=== PATIENT | male | born 1945 | race Caucasian/White ===

== ENCOUNTER 2017-11-11 18:47 | Emergency (ER) | payer MEDICARE, OTHER, SELFPAY ==
[2017-11-11 18:48] VITALS: BP 127/71; PULSE 89; RESP 18; TEMP 36.5; O2SAT 95; BMI 29.7
[2017-11-11] MEDS: Tetracaine 0.5% Ophthalmic Bottle 1 DRP LEFT EYE (19:59)
--- NOTE | 2017-11-11 21:17 | ED.VISSUMM ---
- ER Visit Summary Date of Service: 11/11/17 Chief Complaint: Sawdust right eye History of Present Illness: The patient is a 72 M who was working with a saw and believes he got sawdust in his right eye about 6 hours prior to presentation. He complains of tearing and watering as well as light sensitivity and foreign body sensation. No blurry vision. He does not use contacts. Physical Examination: Afebrile vitals are unremarkable Patient does have some conjunctival injection of the right eye eyelid was everted there is no obvious foreign body Pupils are equally round reactive to light Extraocular motion intact Anterior chamber deep and quiet Slit-lamp examination showed no obvious corneal defect Test Results: Not indicated Emergency Department Course and Treatment: The hospital is out of the floor seen and had no alternative either. Therefore I am unable to perform examination for dye uptake or [place] sign. However I do not have significant clinical suspicion for open globe type injury. I suspect the patient has a corneal abrasion. I spoke Dr. Cowart who is covering for Dr. Reagan who the patient is seen previously and we will empirically treat and have the patient follow-up in the office. Treatment Plan: [] Disposition: Discharge Impression: Corneal abrasion This note was generated with [email or web address] dictation software. It may contain incorrect words, spelling, and punctuation that were not noted in review of the chart prior to signing ED Disposition - Plan for ED Patient: Chief Complaint: Eye Problem Referrals: Darron Terry MD [Primary Care Provider] -
--- NOTE | 2017-11-11 21:19 | ED.DEP ---
ED Disposition - Plan for ED Patient: Chief Complaint: Eye Problem Instructions: ED Eye Injury Corneal Abrasion Prescriptions: Bacitracin/Polymyxin B Sulfate [Bacitracin-Polymyxin Eye Oint] 0.5 inch RIGHT EYE TID #1 oint...g. Referrals: Darron Terry MD [Primary Care Provider] - Jesus Alberto Reagan MD [STAFF PHYSICIAN] -
[2017-11-11 21:37] VITALS: BP 117/80; PULSE 63; RESP 18; O2SAT 100
== END 2017-11-11 21:38 | disposition home or self-care (01) ==
PROVIDERS: Emergency Provider Emergency Medicine; Family Provider Family Medicine; PCP Family Medicine
DX: S05.01XA Injury of conjunctiva and corneal abrasion without foreign body, right eye, initial encounter (principal); X58.XXXA Exposure to other specified factors, initial encounter; Y93.9 Activity, unspecified; Y92.9 Unspecified place or not applicable; Y99.9 Unspecified external cause status; E11.9 Type 2 diabetes mellitus without complications; Z79.84 Long term (current) use of oral hypoglycemic drugs; Z79.899 Other long term (current) drug therapy
CPT/HCPCS: 99283

== ENCOUNTER 2018-04-28 21:28 | Emergency (ER) | payer MEDICARE, OTHER, SELFPAY ==
[2018-04-28 21:28] VITALS: BP 148/86; PULSE 60; RESP 18; TEMP 36.9; O2SAT 99; BMI 29.7
[2018-04-28 22:15] LABS: Absolute Lymphocyte Count 0.89 X10^3/ul (0.83-4.51); Absolute Neutrophil Count 6.1 X10^3/uL (2.0-7.7); Basophil# 0.01 X10^3/uL; Basophil% 0.1 % (0-1); Hematocrit 41.2 % (40-54); Hemoglobin 14.1 g/dl (13.0-16.5); Lymphocyte # 0.89 X10^3/ul (4.0); Lymphocyte % 12.3 % (19-41); Mean Corp Hgb Conc 34.2 g/gl (32-36); Mean Corpuscular Hgb 29.6 pg (27.0-32.0); Mean Corpuscular Volume 86.6 fL (80-94); Mean Platelet Vol. 9.1 fl (6.2-12.0); Monocyte% 4.1 % (0-10); Neutrophil # 6.05 X10^3/uL (2.7-7.7); Neutrophil % 83.4 % (47-70); POSITIVE COUNT NO; POSITIVE DIFFERENTIAL NO; POSITIVE MORPHOLOGY NO; Platelet Count 266 K/mm3 (150-450); RBC Distribution Width CV 14.1 % (11.6-14.6); RBC Distribution Width SD 44.2 fl (35.1-43.9); Red Blood Count 4.76 M/mm3 (4.6-6.2); White Blood Count 7.3 K/mm3 (4.4-11.0)
[2018-04-28 22:16] VITALS: BP 145/93; PULSE 64; RESP 16; O2SAT 97
[2018-04-28 22:26] LABS: Anion Gap 9 (5-15); BUN 17 mg/dL (7-18); BUN/Creat Ratio 13.7 RATIO (10-20); Calcium,Total 9.6 mg/dL (8.5-10.1); Chloride 102 mmol/L (98-107); Creatinine, Serum 1.24 mg/dL (0.70-1.30); EST Glomerular Filtration Rate 61 mL/min (>60); Est Glom Filt Rate - Afr Amer 74 mL/min (>60); Estimated Creatinine Clearance 51.83 ml/min; Glucose 175 mg/dL (74-106); Potassium 4.1 mmol/L (3.5-5.1); Sodium Level 137 mmol/L (136-145)
--- NOTE | 2018-04-28 22:47 | CT_ITS ---
STUDY: CT ABDOMEN AND PELVIS WITH CONTRAST REASON FOR EXAM: Male, 72 years old. Abdominal pain beginning Saturday. Nausea and vomiting. History of prostate cancer and colonic polyps. RADIATION DOSAGE (If Supplied By Facility): CTDIvol = ( 16.28 ) mGy, DLP = ( 1044.37 ) mGycm TECHNIQUE: Transaxial images were obtained from the dome of the diaphragm to the symphysis pubis without oral contrast. 100ML ml of Isovue 300 contrast was administered. Sagittal and coronal images were reconstructed. Individualized dose optimization techniques were used for this CT. COMPARISON: None. FINDINGS: The visualized lung bases are unremarkable. The visualized portions of the heart are within normal limits. Normal liver. Normal gallbladder and extrahepatic biliary system. Normal spleen. Normal pancreas. Normal bilateral adrenal glands. Normal right kidney. Normal left kidney. Normal bilateral ureters. Normal visualized stomach. Normal small intestine. There is descending and sigmoid diverticuli without acute inflammatory change. The proximal colon appears normal. There is non-visualization of the appendix. Normal abdominal aorta. Normal inferior vena cava. Normal retroperitoneum. Normal urinary bladder. There are multiple brachytherapy seeds within the normal sized prostate. No pelvic lymphadenopathy. No free air or free fluid is seen within the peritoneal cavity. Small right inguinal hernia of omental fat. The abdominal wall is otherwise unremarkable. There are diffuse degenerative changes of the visualized lumbar spine. No lytic or blastic lesions are seen. CT/Abdomen/Pelvis W IV Cont ONLY IMPRESSION: 1. No evidence of acute intra-abdominal or pelvic process. 2. Sigmoid diverticulosis without acute inflammatory change. 3. Right inguinal hernia. 4. Brachytherapy seeds within the prostate. 5. Degenerative changes of the lumbar spine. Electronically Signed: Jose Lewis DO at 23:50 EDT Tel [phone], Service support ,
[2018-04-28] MEDS: 0.9% Normal Saline 1,000 ML 150 ML IV (22:59)
[2018-04-28] MEDS: Ondansetron 4 MG/2 ML Vial IV (22:59)
[2018-04-28 23:33] LABS: AST(SGOT) 16 U/L (15-37); Alanine Aminotransfer ALT/SGPT 20 U/L (16-61); Albumin, Serum 4.1 g/dL (3.2-5.0); Alkaline Phosphatase 96 U/L (45-117); Bilirubin, Direct 0.18 mg/dL (0.00-0.30); Globulin 4.5 g/dL (2.2-4.2); Lipase 59 U/L (73-393); Protein, Total 8.6 g/dL (6.4-8.2)
--- NOTE | 2018-04-28 23:33 | ED.VISSUMM ---
- ER Visit Summary Date of Service: 04/28/18 Chief Complaint: Abdominal pain History of Present Illness: The patient is a 72 M who states for the past several days he has been feeling constipated. He had a small bowel movement this morning. He notes decreased solid intake but is been drinking fluids. Notes subjective fever. The symptoms were preceded by a brief URI consisting of cough and rhinorrhea. He notes nausea with dry heaves. Denies any history of small bowel obstruction. Abdominal pain began on Saturday and is described as generalized. He has a history of diverticulitis and prostate cancer as well as diabetes hypertension high cholesterol. He denies history of small bowel obstruction. Physical Examination: Afebrile vital signs are stable Gen: Well-nourished well-developed Head: Normocephalic atraumatic Eyes: Perrl EOMI ENT: TMs clear no rhinorrhea moist mucous membranes Neck: Supple no lymphadenopathy no JVD nontender CVS: Regular rate rhythm no murmurs normal S1-S2 Respiratory: No distress clear to auscultation bilaterally chest nontender Abdomen: Soft diffusely tender without guarding or rebound nondistended hypoactive bowel sounds no masses Back: Nontender Extremity: Nontender no edema Skin: Normal color no rash Neuro: alert orientated ?3 CN II-XII intact normal strength sensation reflexes gait cerebellar Psych: Normal affect normal mood Test Results: CBC CMP lipase were normal. Urinalysis showed some ketones but no overt infection. CT of the abdomen pelvis demonstrated no acute intra-abdominal process. Emergency Department Course and Treatment: Patient received Toradol and Zofran. I believe the patient most likely sustained a viral illness which is led to an ileus as evidenced by the stool being mostly on the right side of his abdomen and hypoactive bowel sounds. Patient will use some magnesium citrate and also write for some Zofran. He is to use apple juice and prune juice tomorrow. Monitor for changes return if worsening or concerns or if not improving in 24 hours. Impression: 1. Abdominal pain 2. Ileus This note was generated with [facility] [employer] dictation software. It may contain incorrect words, spelling, and punctuation that were not noted in review of the chart prior to signing ED Disposition - Plan for ED Patient: Disposition: Home or Assisted Living Chief Complaint: Abd Pain Instructions: ED Abdominal Pain Unkn Cause Prescriptions: Ondansetron [Zofran Odt] 4 mg PO Q8H PRN PRN #10 tab PRN Reason: Nausea Referrals: Darron Terry MD [Primary Care Provider] - 3-5 Days if not improving Additional Instructions: If worsening or concerns or no significant improvement in 24 hours please return to the emergency department for evaluation
[2018-04-28 23:37] LABS: Lactic Acid 1.7 mmol/L (0.4-2.0)
[2018-04-28] MEDS: Ketorolac 30 MG/ML Syringe IV (23:45)
[2018-04-28 23:47] VITALS: BP 142/68; PULSE 72; RESP 22; O2SAT 97
[2018-04-28 23:49] LABS: Squamous Epithelial Cells - UA 0 SEEN /hpf (0-5); White Blood Cells 0 SEEN /hpf (0-5)
[2018-04-28 23:50] LABS: Color, Urine Yellow (Yellow); Glucose, Dipstick 50 mg/dl (Normal); Leukocyte Esterase-Dipstick Negative /ul (Negative); Nitrite-Dipstick Negative (Negative); Occult Blood-Urine 10 /ul (Negative); Protein-Dipstick 15 mg/dl (Negative); Urine Bilirubin Dipstick Negative (Negative); Urine Clarity Clear (Clear); Urine Urobilinogen Normal (Normal); Urine pH 6.5 (5.0 - 8.0)
[2018-04-29 00:04] LABS: Bacteria RARE /hpf (None Seen); Mucous, Urine RARE /hpf (<or=2+); Red Blood Cells-Urine 0-5 SEEN /hpf (0-5)
[2018-04-29 00:05] LABS: Ketone-Dipstick 150 mg/dl (Negative)
[2018-04-29] MEDS: Magnesium Citrate 300 ML PO (00:33)
[2018-04-29] MEDS: Ondansetron ODT 4 MG Tablet PO (00:33)
[2018-04-29 00:34] VITALS: BP 147/78; PULSE 60; RESP 17; O2SAT 98
== END 2018-04-29 00:35 | disposition home or self-care (01) ==
PROVIDERS: Emergency Provider Emergency Medicine; Family Provider Family Medicine; PCP Family Medicine
DX: K56.7 Ileus, unspecified (principal); R10.84 Generalized abdominal pain; R05 Cough; E11.9 Type 2 diabetes mellitus without complications; I10 Essential (primary) hypertension; Z79.84 Long term (current) use of oral hypoglycemic drugs; Z79.899 Other long term (current) drug therapy; Z85.46 Personal history of malignant neoplasm of prostate; Z87.19 Personal history of other diseases of the digestive system; Z96.653 Presence of artificial knee joint, bilateral
CPT/HCPCS: 74177; 80048; 80076; 81001; 83605; 83690; 85025; 96361; 96374; 96375; 99284; J7030; A4216; J2405

== ENCOUNTER 2018-05-01 02:31 | Observation (INO) | payer MEDICARE, OTHER, SELFPAY ==
[2018-05-01] VITALS (7 sets, daily range): BP systolic 120–154; BP diastolic 69–92; PULSE 60–74; RESP 16–18; TEMP 36.7–37.1; O2SAT 95–98; BMI 29.0; BMI 28.8
--- NOTE | 2018-05-01 02:47 | RAD_ITS ---
STUDY: X-RAY - ACUTE ABDOMINAL SERIES REASON FOR EXAM: Male, 72 years old. Generalized abdominal pain for 4 days. TECHNIQUE: Single view of the chest. Supine, and erect view(s) of the abdomen were obtained. COMPARISON: None. FINDINGS: There are hypoventilatory changes. No focal infiltrate is seen. Normal size heart. Normal mediastinum and jocelyn. Normal visualized pulmonary arteries. Normal visualized aortic arch and descending thoracic aorta. There are nonspecific gaseous small bowel loops and colon with multiple air-fluid levels suggestive of ileus. Early bowel obstruction is less likely. There is no evidence of free air. The soft tissue structures of the abdomen and pelvis are unremarkable. There are diffuse degenerative changes of the visualized lumbar spine. RAD/Acute Abdomen Inc Chest IMPRESSION: Gaseous small bowel loops and colon with multiple air-fluid levels likely due to ileus. Early bowel obstruction is less likely but cannot be entirely excluded. Electronically Signed: Roman Manzanares MD at 3:08 EDT Tel , Service support ,
[2018-05-01 02:57] LABS: Absolute Lymphocyte Count 1.36 X10^3/ul (0.83-4.51); Absolute Neutrophil Count 4.8 X10^3/uL (2.0-7.7); Basophil# 0.03 X10^3/uL; Basophil% 0.4 % (0-1); Eosinophil# 0.01 X10^3/uL; Eosinophils% 0.1 % (0-5); Hematocrit 41.7 % (40-54); Hemoglobin 14.7 g/dl (13.0-16.5); Lymphocyte # 1.36 X10^3/ul (4.0); Lymphocyte % 20.1 % (19-41); Mean Corp Hgb Conc 35.3 g/gl (32-36); Mean Corpuscular Hgb 30.1 pg (27.0-32.0); Mean Corpuscular Volume 85.5 fL (80-94); Mean Platelet Vol. 9.2 fl (6.2-12.0); Monocyte# 0.58 X10^3/uL; Monocyte% 8.6 % (0-10); Neutrophil # 4.79 X10^3/uL (2.7-7.7); Neutrophil % 70.7 % (47-70); POSITIVE COUNT NO; POSITIVE DIFFERENTIAL NO; POSITIVE MORPHOLOGY NO; Platelet Count 286 K/mm3 (150-450); RBC Distribution Width CV 13.6 % (11.6-14.6); RBC Distribution Width SD 41.6 fl (35.1-43.9); Red Blood Count 4.88 M/mm3 (4.6-6.2); White Blood Count 6.8 K/mm3 (4.4-11.0)
[2018-05-01] MEDS: 0.9% Normal Saline 1,000 ML 1000 ML IV (03:05)
[2018-05-01] MEDS: Ondansetron 4 MG/2 ML Vial IV (03:05)
[2018-05-01] MEDS: Morphine 4 MG/ML Syringe IV (03:05)
[2018-05-01 03:14] LABS: AST(SGOT) 14 U/L (15-37); Alanine Aminotransfer ALT/SGPT 19 U/L (16-61); Albumin, Serum 3.9 g/dL (3.2-5.0); Alkaline Phosphatase 92 U/L (45-117); Anion Gap 12 (5-15); BUN 14 mg/dL (7-18); BUN/Creat Ratio 10.4 RATIO (10-20); Calcium,Total 9.3 mg/dL (8.5-10.1); Chloride 97 mmol/L (98-107); Creatinine, Serum 1.34 mg/dL (0.70-1.30); EST Glomerular Filtration Rate 56 mL/min (>60); Est Glom Filt Rate - Afr Amer 68 mL/min (>60); Estimated Creatinine Clearance 47.96 ml/min; Globulin 4.6 g/dL (2.2-4.2); Glucose 237 mg/dL (74-106); Lipase 73 U/L (73-393); Potassium 4.3 mmol/L (3.5-5.1); Protein, Total 8.5 g/dL (6.4-8.2); Sodium Level 134 mmol/L (136-145)
--- NOTE | 2018-05-01 03:30 | ED.VISSUMM ---
- ER Visit Summary Date of Service: 05/01/18 Chief Complaint: Abdominal pain History of Present Illness: The patient is a [address] Terry. He reports that he was here 3 days ago and had a CT. Reports that he was told that he had an ileus. He was sent home with magnesium citrate. States that he took that as well as prune juice and his last bout was 2 days ago. He had felt significantly better yesterday. However, today he began having worsening pain. It is an aching diffuse pain senna 10 worsening a 10 currently. Is worsened by movement or laying on his stomach. Is relieved by remaining still. He denies any nausea or vomiting. No melena or hematochezia. No dysuria or frequency. No fever. Physical Examination: Vitals: Stable. Afebrile. General: Well-nourished and well-developed. Head: Normocephalic atraumatic. Neck: Supple, no lymphadenopathy. No JVD. Nontender. Cardiovascular: Regular rate and rhythm. No murmurs. Respiratory: No respiratory distress. Clear to auscultation bilaterally. Abdominal: Soft, mild diffuse tenderness palpation, nondistended, hypoactive bowel sounds. No guarding, rebound, or peritoneal signs. Back: Nontender. Extremities: Nontender, no edema. Skin: Normal color, no rash. Neurologic: Alert and oriented ?3. Cranial nerves II through XII are intact. Normal strength and sensation. Psych: Normal affect. Test Results: CBC is remarkable for segmented neutrophils of 71. Chem-7 is more for sodium 134, chloride 97, glucose 237, creatinine 1.34. LFTs marked for total protein of 8.5 and globulin 4.6. AST is 14. Lipase normal. He had a UA 3 days ago that was negative. This was not repeated. Had a 3 view of the abdomen shows nonspecific gaseous small bowel loops and colon with multiple air-fluid levels suggestive of an ileus. Early small bowel obstruction is less likely. Emergency Department Course and Treatment: Patient had an IV placed. He was given a liter normal saline. He was given morphine and Zofran IV. He is resting comfortably. Treatment Plan: The patient CT 3 days ago did not show an ileus on the read. However, given the location of the stool and is hypoactive bowel sounds it was felt that he did have an ileus. There is been progression over the past 3 days and I feel that he warrants admission to the hospital for further evaluation and treatment. He will be discussed with the hospitalist. Disposition: Admitted in stable condition Impression: 1. Ileus. This note was generated with [employer] dictation software. It may contain incorrect words, spelling, and punctuation that were not noted in review of the chart prior to signing ED Disposition - Plan for ED Patient: Chief Complaint: Abd Pain Referrals: Delmer Min MD [Primary Care Provider] -
--- NOTE | 2018-05-01 04:30 | HP.PCM_ITS ---
Problem List (1) Ileus Status: Acute (2) History of prostate cancer Status: Chronic (3) DM (diabetes mellitus) Status: Chronic History of Present Illness Date of Admission: 05/01/18 Chief Complaint: abdominal pain and constipation x 4 days. The patient is a 72 year old M with a significant history of type 2 diabetes, hyperlipidemia, prostate cancer status post brachytherapy; hernia repair who presents with abdominal pain and constipation times 4 days. 4 days ago patient came to the emergency department due to same symptoms and was given magnesium citrate. Patient report that after taking the magnesium citrate his bowels could not move. Subsequently he tried some prune juice and had a little bit of bowel movements. Patient still feels that he could not completely empty his bowels. He describes abdominal pain of 8-9 on a severity of 1-10. He characterizes abdominal pain as bloating and tightness. Associated with his symptoms is nausea without vomiting. Abdominal x-ray independently reviewed confirms multiple air-fluid levels of small bowel in the colon. Prior radiologist early bowel obstruction is less likely but cannot be entirely excluded. CT of his abdomen done 4 days ago at initial presentation did not show any acute pathology but clinically he was diagnosed with ileus. Ileus Less likely bowel obstruction. Remarkably patient has a history of hernia surgery. Other less likely diagnosis is Diabetic Gastroparesis Conservative treatment with npo; normal saline; morphine for pain and Zofran for nausea or vomiting. GoLYTELY ordered. Surgery consult Hypertension His blood pressure on admission was not at goal. Lisinopril held due to ileus. As needed hydralazine ordered. Diabetes mellitus type 2 Blood glucose not at goal at time of admission. Metformin held secondary to ileus Correction scale blood glucose ordered. Past Medical History Past Medical History (Chronic Problems): Chronic Problems (This Medical Record has been edited. Action required.) History of prostate cancer (Chronic) DM (diabetes mellitus) (Chronic) Medical History: Medical History (Last Reviewed 05/01/18 @ 04:46 by Marques Phillips MD) History of prostate cancer (Chronic) Z85.46 DM (diabetes mellitus) (Chronic) E11.9 Benign neoplasm of colon (Acute) D12.6 Allergies No Known Allergies Allergy (Verified 05/01/18 02:32) Home Medications: Ambulatory Orders Medication Instructions Recorded lisinopril 10 mg tablet 10 mg PO QDAY 07/04/17 metformin 500 mg tablet 500 mg PO BID 07/04/17 pravastatin 20 mg tablet 20 mg PO QHS 07/04/17 Ondansetron [Zofran Odt] 4 mg PO Q8H PRN PRN #10 tab 04/29/18 Surgical History: Surgical History (Last Reviewed 05/01/18 @ 04:46 by Marques Phillips MD) Status post bilateral knee replacements (Acute) Z96.653 Status post finger joint fusion (Acute) Z98.1 Repair of Right index finger 11/25/2006 Hx of inguinal hernia repair (Acute) Right History of local excision of skin lesion (Acute) Z98.890 Excision of skin lesion upper mid back S/P foot surgery (Acute) Z98.890 S/P surgical removal of pilonidal cyst (Acute) Z98.890 Status post arthroscopic surgery of right knee (Acute) Z98.890 partial medial menisectomy 03/21/2009 S/P arthroscopic surgery of left knee (Acute) Z98.890 medial menisectomy 02/10/2007 S/P colonoscopy (Acute) Z98.890 08/06/2012 Surgical History: herniorrhaphy, - - Previous colonoscopy August 06, 2012 Lives: With Family Smoking Status: Never smoker - had only one puff of cigarettes in entire life many years ago. - *Family History Maternal Family History: Family History (Last Reviewed 05/01/18 @ 04:47 by Marques Phillips MD) Mother Diabetes Brother Thyroid cancer Prostate cancer Sister Colon cancer Review of Systems Constitutional: Denies: Chills, Fever, Weight Change HEENT: Denies: Head Aches, Sinus Congestion, Sinus Drainage Cardiovascular: Denies: Chest Pain, Palpitations Respiratory: Denies: Cough, Shortness of breath at rest, Sputum production Gastrointestinal: Reports: Abdominal Pain, Hematemesis, Hematochezia, Nausea, Melena. Denies: Vomiting Genitourinary: Denies: Dysuria Musculoskeletal: Denies: Joint Pain, Joint Tenderness Skin: Denies: Rash, Wounds Neurological: Denies: Numbness, Tingling, Focal weakness Psychiatric: Denies: Anxiety, Depression, Homicidal Ideations, Suicidal Ideations Hematologic/ Lymphatic: Denies: Easy Bruising, Easy Bleeding VTE Information - Inpt Only VTE Present on Admission: No VTE Mechan Device Prophylaxis: None VTE Pharm Prophylaxis ordered?: Yes Patient Problems: Active and Suspected Problems (This Medical Record has been edited. Action required.) Ileus (Acute) - Physical Exam General: Alert, Oriented x3, Cooperative HEENT: Atraumatic, PERRLA, EOMI, Normocephalic Neck: Supple, No JVD, Negative Carotid Bruits Lungs: Clear to auscultation, Normal air movement Cardiovascular: Regular rate, No murmurs Abdomen: Bowel Sounds Present, Soft, Non Tender, - - Rectal exams showed no masses or obstructing stool. Extremities: No edema, Capillary Refill Less than 3 Seconds Skin: No rashes, No breakdown Musculoskeletal: No Tenderness to Palpation of Joints or Extremities Neurological: Cranial nerves II-XII grossly intact Psych/Mental Status: Normal Affect, Appropriate Vital Signs Temp Pulse Resp BP Pulse Ox 98.7 F 68 18 120/78 96 05/01/18 02:33 05/01/18 04:15 05/01/18 04:15 05/01/18 04:15 05/01/18 04:15 Oxygen Delivery Method Room Air Weight: 84 kg Body Mass Index (BMI) 29.0 Laboratory Tests Past 24 Hrs 05/01/18 05/01/18 02:40 02:40 WBC 6.8 RBC 4.88 Hgb 14.7 Hct 41.7 MCV 85.5 MCH 30.1 MCHC 35.3 RDW 13.6 RDW Differential 41.6 Plt Count 286 MPV 9.2 Immature Gran % (Auto) 0.100 Neut % (Auto) 70.7 H Lymph % (Auto) 20.1 [place] % (Auto) 8.6 Eos % (Auto) 0.1 Baso % (Auto) 0.4 Absolute Neuts (auto) 4.8 Absolute Lymphs (auto) 1.36 Total Counted Not Reportable Sodium 134 L Potassium 4.3 Chloride 97 L Carbon Dioxide 25.0 Anion Gap 12 BUN 14 Creatinine 1.34 H Estim Creat Clear Calc 47.96 Est GFR (MDRD) Af Amer 68 Est GFR (MDRD) Non-Af 56 L BUN/Creatinine Ratio 10.4 Glucose 237 H Calcium 9.3 Total Bilirubin 0.60 Direct Bilirubin 0.10 AST 14 L ALT 19 Alkaline Phosphatase 92 Total Protein 8.5 H Albumin 3.9 Globulin 4.6 H Lipase 73 Assessment/Plan All Active Problems (This Medical Record has been edited. Action required.) Ileus (Acute) Personal history of colonic polyps (Acute) Status post bilateral knee replacements (Acute) Status post finger joint fusion (Acute) Hx of inguinal hernia repair (Acute) History of local excision of skin lesion (Acute) S/P foot surgery (Acute) S/P surgical removal of pilonidal cyst (Acute) Status post arthroscopic surgery of right knee (Acute) S/P arthroscopic surgery of left knee (Acute) S/P colonoscopy (Acute) Benign neoplasm of colon (Acute) The patient is a 72 year old M with a significant history of type 2 diabetes, hyperlipidemia, prostate cancer status post brachytherapy; hernia repair who presents with abdominal pain and constipation and found to have radiographic evidence of possible ileus. Ileus Less likely bowel obstruction. Remarkably patient has a history of hernia surgery. Other less likely diagnosis is Diabetic Gastroparesis Conservative treatment with npo; normal saline; morphine for pain and Zofran for nausea or vomiting. GoLYTELY ordered. Surgery consult ED labs showed mild hyponatremia; slight elevated creatinine which may be within his baseline Hypertension His blood pressure on admission was not at goal. Lisinopril held due to ileus. As needed hydralazine ordered. Diabetes mellitus type 2 Blood glucose not at goal at time of admission. Metformin held secondary to ileus Correction scale blood glucose ordered. DVT Prophylaxis Subcutaneous heparin Code Visit OBSV E&M: 48680 Initial observation care L3
--- NOTE | 2018-05-01 06:21 | PCM.CONS.GEN ---
Problem List (1) Ileus Status: Acute Reason for Consult Date of Consultation: 05/01/18 History of Present Illness: The patient is a 72 year old M who I have been asked to consult on by Dr. Phillips for surgical consultation on ileus/bowel obstruction. An electronic copy my surgical consult will be present in the chart.. 5 days ago after eating Cuban fries at a fair he developed abdominal bloating. He became uncomfortable. He tried to self induce vomiting but that was not successful. He presented to the [facility] emergency room on April 28. Evaluation included a CT scan which demonstrated diverticulosis. Right inguinal hernia. No acute intra-abdominal process. The patient was given magnesium citrate. He had a very small movement of his bowels with that. He continued to have progressive abdominal pain distention bloating. He tried a glass of prune juice. Had some slight minimal result. He represented to the emergency room last night. Abdominal x-rays were obtained with air-fluid levels noted throughout the large and small bowel. Ileus was favored. Early small bowel obstruction could not be excluded. On my review of the x-rays I am not detecting findings that would suggest small bowel obstruction. The patient states the chest an hour ago he passed some flatus and has had some improved comfort. He has had very minimal stool. He has never had an episode similar to this in the past. He has not been eating any constipating foods like cheeses. He has had a remote bout of diverticulitis but nothing recently. I assisted him in July 2017 with a colonoscopy because he has a personal history of colon polyps. Severe diverticulosis of the sigmoid and descending colon was identified at that time but no recurrent polyps. He denies any focal abdominal pain at this moment. His major complaint is distention and cramping He has a past history of prostate cancer and has indwelling radium seeds. He has had a previous inguinal hernia repair. He has not had any previous abdominal surgery. Admission laboratory is quite unremarkable Past Medical History Past Medical History (Chronic Problems): Chronic Problems (Last Reviewed 05/01/18 @ 04:46 by Marques Phillips MD) History of prostate cancer (Chronic) DM (diabetes mellitus) (Chronic) Medical History: Medical History (Last Reviewed 05/01/18 @ 04:46 by Marques Phillips MD) History of prostate cancer (Chronic) Z85.46 DM (diabetes mellitus) (Chronic) E11.9 Benign neoplasm of colon (Acute) D12.6 Allergies No Known Allergies Allergy (Verified 05/01/18 02:32) Home Medications: Ambulatory Orders Medication Instructions Recorded lisinopril 10 mg tablet 10 mg PO QDAY 07/04/17 metformin 500 mg tablet 500 mg PO BID 07/04/17 pravastatin 20 mg tablet 20 mg PO QHS 07/04/17 Ondansetron [Zofran Odt] 4 mg PO Q8H PRN PRN #10 tab 04/29/18 Surgical History: Surgical History (Last Reviewed 05/01/18 @ 04:46 by Marques Phillips MD) Status post bilateral knee replacements (Acute) Z96.653 Status post finger joint fusion (Acute) Z98.1 Repair of Right index finger 11/25/2006 Hx of inguinal hernia repair (Acute) Right History of local excision of skin lesion (Acute) Z98.890 Excision of skin lesion upper mid back S/P foot surgery (Acute) Z98.890 S/P surgical removal of pilonidal cyst (Acute) Z98.890 Status post arthroscopic surgery of right knee (Acute) Z98.890 partial medial menisectomy 03/21/2009 S/P arthroscopic surgery of left knee (Acute) Z98.890 medial menisectomy 02/10/2007 S/P colonoscopy (Acute) Z98.890 0208/06/2012 Surgical History: herniorrhaphy, - - Previous colonoscopy August 06, 2012 Lives: With Family Smoking Status: Never smoker - had only one puff of cigarettes in entire life many years ago. - *Family History Maternal Family History: Family History (Last Reviewed 05/01/18 @ 04:47 by Marques Phillips MD) Mother Diabetes Brother Thyroid cancer Prostate cancer Sister Colon cancer History Items: Unknown Review of Systems Constitutional: Reports: Anorexia, Chills, Fever HEENT: Denies: Difficulty Swallowing Cardiovascular: Denies: Chest Pain, Claudication Respiratory: Denies: Cough, Hemoptysis, Shortness of Breath Gastrointestinal: Reports: Abdominal Pain, Constipation, Nausea. Denies: Vomiting Genitourinary: Denies: Dysuria, Frequency Skin: Denies: Dryness Neurological: Denies: Balance problems Psychiatric: Denies: Anxiety Endocrine: Denies: Change in Body Habitus Patient Problems: Active and Suspected Problems (Last Reviewed 05/01/18 @ 04:46 by Marques Phillips MD) Ileus (Acute) - Physical Exam General: Alert, Oriented x3, Cooperative, No apparent distress HEENT: Atraumatic Oral: Moist Mucosa Neck: Supple Lungs: Clear to auscultation Cardiovascular: Regular rate, Regular Rhythm Abdomen: Bowel Sounds Present, Soft, Non Tender, Distended, - - No mass, no rebound, no guarding Extremities: No clubbing Skin: No rashes Musculoskeletal: No Tenderness to Palpation of Joints or Extremities Neurological: Cranial nerves II-XII grossly intact Psych/Mental Status: Normal Affect Vital Signs Temp Pulse Resp BP Pulse Ox 98.2 F 61 16 154/78 H 96 05/01/18 04:47 05/01/18 04:47 05/01/18 04:47 05/01/18 04:47 05/01/18 04:47 Oxygen Delivery Method Room Air Weight: 183 lb 10.321 oz Body Mass Index (BMI) 28.8 Laboratory Tests Past 24 Hrs 05/01/18 05/01/18 02:40 02:40 WBC 6.8 RBC 4.88 Hgb 14.7 Hct 41.7 MCV 85.5 MCH 30.1 MCHC 35.3 RDW 13.6 RDW Differential 41.6 Plt Count 286 MPV 9.2 Immature Gran % (Auto) 0.100 Neut % (Auto) 70.7 H Lymph % (Auto) 20.1 [place] % (Auto) 8.6 Eos % (Auto) 0.1 Baso % (Auto) 0.4 Absolute Neuts (auto) 4.8 Absolute Lymphs (auto) 1.36 Total Counted Not Reportable Sodium 134 L Potassium 4.3 Chloride 97 L Carbon Dioxide 25.0 Anion Gap 12 BUN 14 Creatinine 1.34 H Estim Creat Clear Calc 47.96 Est GFR (MDRD) Af Amer 68 Est GFR (MDRD) Non-Af 56 L BUN/Creatinine Ratio 10.4 Glucose 237 H Calcium 9.3 Total Bilirubin 0.60 Direct Bilirubin 0.10 AST 14 L ALT 19 Alkaline Phosphatase 92 Total Protein 8.5 H Albumin 3.9 Globulin 4.6 H Lipase 73 Assessment/Plan All Active Problems (Last Reviewed 05/01/18 @ 04:46 by Marques Phillips MD) Ileus (Acute) Personal history of colonic polyps (Acute) Status post bilateral knee replacements (Acute) Status post finger joint fusion (Acute) Hx of inguinal hernia repair (Acute) History of local excision of skin lesion (Acute) S/P foot surgery (Acute) S/P surgical removal of pilonidal cyst (Acute) Status post arthroscopic surgery of right knee (Acute) S/P arthroscopic surgery of left knee (Acute) S/P colonoscopy (Acute) Benign neoplasm of colon (Acute) 72-year-old gentleman who presents now with a 4-5-day history of abdominal distention cramping nausea with inability to vomit. Small amounts of stool. Known history of severe diverticulosis. Known history of treated prostate cancer. No history of abdominal surgery. CT suggests right inguinal hernia. He is nontender in this area and there certainly is no evidence of incarceration. There is no evidence of bowel involvement on CT On my review of his imaging findings do not suggest small bowel obstruction at this time. He is had attempts at resolving his issue with oral laxatives. I would be more cautious at this point. I will prescribe some enemas, encourage hydration, and mobilization. The patient does not have an acute surgical abdomen nor seemingly an acute surgical illness at this time. The patient has been able to pass some flatus and is feeling improved. I am anticipating ongoing resolution with conservative measures Maxim Cheung M.D., F.A.C.S.
--- NOTE | 2018-05-01 06:57 | NURSING ---
PATIENT GIVEN SOAP SUDS ENEMA BY MAXIMILIANO DAVIDSON RN
[2018-05-01 07:01] LABS: Bedside Glucose 133 mg/dL (70-110)
[2018-05-01] MEDS: 0.9% Normal Saline 1,000 ML 100 ML IV (07:07)
--- NOTE | 2018-05-01 07:10 | NURSING ---
FLEETS ENEMA GIVEN BY MAXIMILIANO DAVIDSON RN
[2018-05-01] MEDS: Fleet Enema 1 ML RECTAL (07:12)
[2018-05-01] MEDS: Heparin Injection (Vial) 5,000 UNIT/ML VIAL 5000 UNIT SC ×3 (07:12→22:17)
--- NOTE | 2018-05-01 07:22 | NURSING ---
Liquid brown stool after receiving the 1000cc SS enema was given. Fleets enema given. pt tolerated the enemas.
--- NOTE | 2018-05-01 07:28 | CCHN_ITS ---
Hospitalist Note The patient was admitted managed care coordinator today by nighttime hospitalist. H&P, vitals, labs, imaging test and plan of management reviewed. Surgeon Dr. Cheung consult reviewed and appreciated. Seen and examined. Overall, patient was admitted today in the morning with abdominal pain, abdominal distention and constipation for about 4 days, gradually worsening. Patient received enema and had bowel movement twice and symptoms of abdominal distention has improved. Currently on ice sips and chips. On exam General: Mild discomfort due to abdominal discomfort Lungs: Air entry bilaterally equal, no rhonchi/crepitation heart: S1-S2 regular,No murmur gallop rub. Abdomen: Soft, mild distention. Bowel sounds hypoactive. Mild soreness but no significant tenderness. No palpable mass. Right inguinal fullness with impulse on coughing present. No incarcerated hernia. Extremities: No pedal edema. Abdominal x-ray shows gaseous small bowel loops in colon's with multiple air- fluid levels suggestive of ileus. Prior to that, patient had CT abdomen 4 days ago during initial ER visit and did not show evidence of acute intra-abdominal or pelvic process but sigmoid diverticulosis. Management Currently, on clear liquid IV fluid. Patient had enema. Monitor vital signs abdominal distention. Monitor intake and output. Clinical Impression(s) from Imaging Studies Acute Abdomen Series 05/01/18 02:47 IMPRESSION: Gaseous small bowel loops and colon with multiple air-fluid levels likely due to ileus. Early bowel obstruction is less likely but cannot be entirely excluded. Laboratory Results 05/01/18 02:40: WBC 6.8, RBC 4.88, Hgb 14.7, Hct 41.7, MCV 85.5, MCH 30.1, MCHC 35.3, RDW 13.6, RDW Differential 41.6, Plt Count 286, MPV 9.2, Immature Gran % (Auto) 0.100, Neut % (Auto) 70.7 H, Lymph % (Auto) 20.1, [place] % (Auto) 8.6, Eos % (Auto) 0.1, Baso % (Auto) 0.4, Absolute Neuts (auto) 4.8, Absolute Lymphs (auto) 1.36, Total Counted Not Reportable 05/01/18 02:40: Sodium 134 L, Potassium 4.3, Chloride 97 L, Carbon Dioxide 25.0, Anion Gap 12, BUN 14, Creatinine 1.34 H, Estim Creat Clear Calc 47.96, Est GFR (MDRD) Af Amer 68, Est GFR (MDRD) Non-Af 56 L, BUN/Creatinine Ratio 10.4, Glucose 237 H, Calcium 9.3, Total Bilirubin 0.60, Direct Bilirubin 0.10, AST 14 L, ALT 19, Alkaline Phosphatase 92, Total Protein 8.5 H, Albumin 3.9, Globulin 4.6 H, Lipase 73 05/01/18 06:38: POC Glucose 133 H 05/01/18 11:55: POC Glucose 129 H
[2018-05-01 12:05] LABS: Bedside Glucose 129 mg/dL (70-110)
[2018-05-01] MEDS: Electrolyte Solution/Peg's 4000 ML 2000 ML PO (12:05)
--- NOTE | 2018-05-01 13:30 | CASEMGMT ---
RN CM Assessment. PCP: Dr. Min Pharmacy: [facility] DME: None Intro role of CM to patient in room. States he is independent, drives, no needs identified. DC Plan: Home
[2018-05-01 17:05] LABS: Bedside Glucose 144 mg/dL (70-110)
[2018-05-01 22:31] LABS: Bedside Glucose 128 mg/dL (70-110)
[2018-05-02 02:00] VITALS: BP 128/72; PULSE 61; RESP 16; TEMP 36.9; O2SAT 95
--- NOTE | 2018-05-02 06:22 | PCM.PN.SRG ---
Patient Problems: Active and Suspected Problems (Last Reviewed 05/01/18 @ 04:46 by Marques Phillips MD) Ileus (Acute) Subjective: Pt states he feels much better, he feels normal. No pain or nausea. He notes with laxatives he cleared out and had some foul smelling stool? - Physical Exam Abdomen: Soft, Non Tender, Non-Distended, Hyperactive Bowel Sounds Vital Signs Temp Pulse Resp BP Pulse Ox 98.4 F 61 16 128/72 H 95 05/02/18 02:00 05/02/18 02:00 05/02/18 02:00 05/02/18 02:00 05/02/18 02:00 Oxygen Delivery Method Room Air Weight: 183 lb 10.321 oz Body Mass Index (BMI) 28.8 Intake and Output for Last 24 Hours 04/30/18 05/01/18 05/02/18 23:59 23:59 23:59 Intake Total 2941 / 2941 Output Total 175 / 175 Balance 2766 / 2766 POC Glucose 05/01/18 05/01/18 05/01/18 22:23 17:02 11:55 POC Glucose 128 H 144 H 129 H 05/01/18 06:38 POC Glucose 133 H Medical Necessity - Tobacco Use Smoking Status: Never smoker - had only one puff of cigarettes in entire life many years ago. Assessment/Plan All Active Problems (Last Reviewed 05/01/18 @ 04:46 by Marques Phillips MD) Ileus (Acute) Personal history of colonic polyps (Acute) Status post bilateral knee replacements (Acute) Status post finger joint fusion (Acute) Hx of inguinal hernia repair (Acute) History of local excision of skin lesion (Acute) S/P foot surgery (Acute) S/P surgical removal of pilonidal cyst (Acute) Status post arthroscopic surgery of right knee (Acute) S/P arthroscopic surgery of left knee (Acute) S/P colonoscopy (Acute) Benign neoplasm of colon (Acute) Clinically resolved. Etiology unknown Advance diet and recommend discharge I do not have further testing planned at this time
[2018-05-02] MEDS: Heparin Injection (Vial) 5,000 UNIT/ML VIAL 5000 UNIT SC (06:44)
[2018-05-02 06:56] LABS: Bedside Glucose 146 mg/dL (70-110)
[2018-05-02 08:19] VITALS: BP 130/77; PULSE 92; RESP 16; TEMP 36.6; O2SAT 97
--- NOTE | 2018-05-02 09:24 | DCINST_ITS ---
- Discharge Diagnoses Current Active Problems: Current Active and Chronic Problems (Last Reviewed 05/01/18 @ 04:46 by Marques Phillips MD) Ileus (Acute) You will use the following diet at home:: Regular, Cardiac - low residue diet with no carbonated beverages/soda Your food should be the consistency of: Regular Discharge Activity: Return to Normal Activity Call your doctor if you observe: Fever of 101 or Higher, Chest pain, - - Abdominal pain Allergies/Adverse Reactions: Allergies No Known Allergies Allergy (Verified 05/01/18 02:32) Medications to take at Discharge lisinopril 10 mg tablet 10 mg PO QDAY 07/04/17 pravastatin 20 mg tablet 20 mg PO QHS 07/04/17 Ondansetron [Zofran Odt] 4 mg PO Q8H PRN PRN #10 tab 04/29/18 Metformin HCl [Glucophage] 500 mg PO BID #0 05/02/18 Primary Care Physician: Delmer Min MD [Primary Care Provider] - Please follow up with your Primary Care Physician in: in 2 weeks Test Results: Test results from this visit will be discussed in further detail at your follow- up appointment, if applicable. Please Follow Up With: Maxim Cheung MD When: in 3-4 weeks for ileus
--- NOTE | 2018-05-02 09:24 | DS.PCM_ITS ---
Discharge Date and Diagnosis - Problem List Patient Problems: Active and Suspected Problems (Last Reviewed 05/01/18 @ 04:46 by Marques Phillips MD) Ileus (Acute) Date of Admission: 05/01/18 Date of Discharge: 05/02/18 - Primary Discharge Diagnosis Active and Suspected Problems (Last Reviewed 05/01/18 @ 04:46 by Marques Phillips MD) Ileus (Acute) Subacute small bowel ileus with constipation: Resolved - Secondary Discharge Diagnosis Chronic Problems (Last Reviewed 05/01/18 @ 04:46 by Marques Phillips MD) History of prostate cancer (Chronic) DM (diabetes mellitus) (Chronic) Hospital Course and Treatment Summary of Care Provided: The patient was seen and examined today. Abdominal distention, pain resolved. No nausea or vomiting and he feels ready to go home. General: Average built. No distress. Lungs: Air entry bilaterally equal, no rhonchi/crepitation heart: S1-S2 regular,No murmur gallop rub. Abdomen: Soft, nontender/non-distention. Bowel sounds present. No palpable mass. Right inguinal fullness with impulse on coughing present. No incarcerated hernia. Extremities: No pedal edema. Neuro: No FND. Cranial nerves II through XII are intact. Overall, hospital course and management as follows: The patient is a 72 year old M was admitted with abdominal pain, abdominal distention and constipation for about 4 days, gradually worsening, consistent with bowel ileus/obstruction. Patient was admitted on regular [facility] floor. Abdominal x-ray shows gaseous small bowel loops in colon's with multiple air- fluid levels suggestive of ileus. Prior to that, patient had CT abdomen 4 days ago during initial ER visit and did not show evidence of acute intra-abdominal or pelvic process but sigmoid diverti culosis. Patient was seen by surgeon, Dr. Maxim Cheung and assessment was made of small bowel ileus. Patient received enema and had bowel movement, multiple times since yesterday and symptoms of abdominal distention has improved and today resolved. The diet was advanced gradually from clear liquid to soft and regular diet. Labs shows creatinine 1.34 which improved with IV fluid 1.16. Patient was advised to hold metformin for 3 days. Discharge medication reconciliation done. Discharge follow-up instructions completed. Follow-up care and discharge meds discussed with the patient. Total time spent, exact 35 minutes on discharge meds reconciliation, examination, review of imaging and blood test and discussion with the patient on follow-up instructions. Discharge Activity: Return to Normal Activity Call your doctor if you observe: Fever of 101 or Higher, Chest pain, - - Abdominal pain Home Medications: Medications to take at Discharge lisinopril 10 mg tablet 10 mg PO QDAY 07/04/17 pravastatin 20 mg tablet 20 mg PO QHS 07/04/17 Ondansetron [Zofran Odt] 4 mg PO Q8H PRN PRN #10 tab 04/29/18 Metformin HCl [Glucophage] 500 mg PO BID #0 05/02/18 Primary Care Physician: Delmer Min MD [Primary Care Provider] - Please follow up with your Primary Care Physician in: in 2 weeks Please Follow Up With: Maxim Cheung MD When: in 3-4 weeks for ileus Medical Necessity - Tobacco Use Smoking Status: Never smoker - had only one puff of cigarettes in entire life many years ago. Meaningful Use Info Meaningful Use Diagnoses (Choose all that apply): None applicable Code Visit Inpatient E&M: 99691 Disch Hosp
[2018-05-02 10:08] LABS: Anion Gap 6 (5-15); BUN 9 mg/dL (7-18); BUN/Creat Ratio 7.8 RATIO (10-20); Calcium,Total 8.8 mg/dL (8.5-10.1); Chloride 101 mmol/L (98-107); Creatinine, Serum 1.16 mg/dL (0.70-1.30); EST Glomerular Filtration Rate 66 mL/min (>60); Est Glom Filt Rate - Afr Amer 80 mL/min (>60); Glucose 185 mg/dL (74-106); Potassium 4.3 mmol/L (3.5-5.1); Sodium Level 136 mmol/L (136-145)
== END 2018-05-02 10:31 | disposition home or self-care (01) ==
LOC: ED 02:52 → MS3 04:07
PROVIDERS: Family Medicine; Admitting Provider Hospitalist; Emergency Provider Emergency Medicine; Family Provider Family Medicine; PCP Family Medicine; Visit Provider Internal Medicine
DX: K56.7 Ileus, unspecified (principal); Z85.46 Personal history of malignant neoplasm of prostate; K59.00 Constipation, unspecified; K57.30 Diverticulosis of large intestine without perforation or abscess without bleeding; E11.9 Type 2 diabetes mellitus without complications; E78.5 Hyperlipidemia, unspecified; Z79.899 Other long term (current) drug therapy; Z79.84 Long term (current) use of oral hypoglycemic drugs; Z86.010 Personal history of colon polyps; E87.1 Hypo-osmolality and hyponatremia; K40.90 Unilateral inguinal hernia, without obstruction or gangrene, not specified as recurrent
CPT/HCPCS: 36415; 74022; 80048; 80076; 82962; 83690; 85025; 96361; 96372; 96374; 96375; 97802; 99218; 99285; J7030; A4216; G0378; J2405

== ENCOUNTER 2018-08-11 05:25 | Day surgery (SDC) | payer MEDICARE, OTHER, SELFPAY ==
[2018-07-14 12:58] VITALS: BMI 28.5
--- NOTE | 2018-08-04 10:34 | EKG12_ITS ---
Test Reason : Blood Pressure : / mmHG Vent. Rate : 086 BPM Atrial Rate : 086 BPM P-R Int : 190 ms QRS Dur : 102 ms QT Int : 382 ms P-R-T Axes : 069 076 018 degrees QTc Int : 457 ms Normal sinus rhythm Normal ECG Confirmed by JOSH NORWOOD, KEI ([id number]), slot editor EN MERCHANT ([id number]) on 08/05/2018 9:21:09 AM Referred By: Maxim Cheung Confirmed By:KEI MORENO MD
[2018-08-11 05:48] VITALS: BP 128/85; PULSE 61; RESP 16; TEMP 36.8; O2SAT 98; BMI 29.8
[2018-08-11 06:00] LABS: Bedside Glucose 134 mg/dL (70-110)
--- NOTE | 2018-08-11 07:04 | DCINST_ITS ---
Discharge Diet: Light diet - advance as tolerated - if you have questions about your diet instructions, please talk to you doctor. Discharge Activity: May Not Drive - for 3-5 days or while taking narcotic pain medicine. May shower in (days): 1 Lifting Restrictions: 10 pounds Call your doctor if your incision/area has: Continuous Slow Oozing, Sudden Increased Bleeding, Increased Pain/ Swelling, Increased Redness, Foul Smelling Discharge Call your doctor if you observe: Fever of 101 or Higher Suture Line Care: Avoid Pulling/Pushing, Avoid Pinching/Bending Additional Dressing/Incision Instructions:: Change or remove dressing in 4 days. Leave steri-strips in place for 1 week. Allergies/Adverse Reactions: Allergies No Known Allergies Allergy (Verified 08/04/18 08:47) Medications to take at Discharge lisinopril 10 mg tablet 10 mg PO QDAY 07/04/17 pravastatin 20 mg tablet 20 mg PO QHS 07/04/17 Metformin HCl [Glucophage] 1,000 mg PO BID 08/04/18 Hydrocodone Bitart/Apap 5-325 [[place] 5MG-325MG] 1 tablet PO Q6H PRN PRN 3 Days #10 tablet 08/11/18 The following prescriptions were given: Hydrocodone Bitart/Apap 5-325 [[place] 5MG-325MG] 1 tablet PO Q6H PRN PRN 3 Days #10 tablet PRN Reason: Pain Primary Care Physician: Delmer Min MD [Primary Care Provider] - Test Results: Test results from this visit will be discussed in further detail at your follow- up appointment, if applicable. Please Follow Up With: Maxim Cheung MD - [phone] When: Call to make an appointment to be seen in about 10 days.
[2018-08-11] MEDS: Cefazolin 2 GM in 0.9% Normal Saline 100 ML IV (07:10)
--- NOTE | 2018-08-11 07:15 | LIP_PTH ---
PATIENT: RHONDA MEJIA [place] [facility] [id number] AGE/SX: 73/M ROOM: RE08/11/[address]: Dr. Maxim Cheung MD : 1945 BED: DIS: 08/11/2018 SPEC #: [id number] RECD: 08/11/18 10:07 STATUS: GOVIND REKirsty #: [id number] DOTTY: 08/11/18 07:[address]: Maxim Cheung DEPT: SURGICAL PATHOLOGY RECD BY: Ramu Hankins ENTERED: 08/11/18 10:58 SP TYPE: LIPOMA OTHR DR: Dr. Delmer Min MD Tissues: Soft tissues, NOS Procedures: Surgery Specimen Level III HEADER OPERATION: Right inguinal hernia repair with mesh PRE-OP DIAGNOSIS: Right inguinal hernia TISSUE SUBMITTED: Lipoma of cord MICROSCOPIC DIAGNOSIS Soft tissue of right inguinal region, excision: Mature adipose tissue consistent with lipoma of cord. AM:jignesh 08/12/18 MICROSCOPIC DESCRIPTION Slides are reviewed. GROSS DESCRIPTION Received in fixative is one container labeled with the patient's name and designated lipoma of cord. The specimen consists of an irregular piece of yellow adipose tissue measuring 6 x 2.5 x 1.5 cm. Sections reveal yellow adipose cut surfaces without areas of hemorrhage, necrosis or cystic degeneration. Lacing String Cutter sections are submitted in one cassette. / SJ:jignesh 08/11/18 TC:1 CPT: 02615
[2018-08-11] MEDS: Bupivacaine Mpf 0.5% 30 ML VIAL (07:40)
--- NOTE | 2018-08-11 08:30 | OP.PCM_ITS ---
Problem List (1) Right inguinal hernia Status: Acute Report of Operation Date of Procedure: 08/11/18 Pre-Operative Diagnosis: Indirect right inguinal hernia Post-Operative Diagnosis: Indirect right inguinal hernia with cord lipoma Surgery/Procedure Performed:: Christopher right inguinal herniorrhaphy. Bard mesh preshaped lot number [employer] [id number]. Reference #[id number]. Expiry date 02/22/2023 Description of Surgical Findings:: Timeout and informed consent was obtained. 73-year-old gent was taken the operating placement table underwent monitored anesthesia care. 2 g given intravenous preoperatively. The right groin was sterilely prepped and draped. 1% lidocaine with 2.5% Marcaine was used as local anesthetic. Throughout the procedure total 30 cc was used. Local was instilled. Then a transverse incision made in the right groin electrocautery was used to make dissected down through the subcu tissue. The patient had very deep respirations and a very bulbous abdomen. Dissection actually was difficult to the shape as of the abdomen bulb was aiming the hernia more inferiorly. I incised the external oblique identified the cord structures I was able to get circumferential control in place a [place]. A sizable cord lipoma was identified laterally this was dissected free to the internal ring and was high ligated with 0 Vicryl suture ligature. The direct space was dissected free overlying the pubic tubercle. Having achieved that I approximated the transversalis fascia from the pubic tubercle to the internal ring with a running 3-0 Ethibond suture. I then placed the keyhole mesh around the internal ring I secured to itself with 3-0 Ethibond placed that so as to nicely reapproximate the internal ring I then secured in place to the pubic tubercle shelving edge of Poupart's and the aponeurosis of the internal/external oblique with several interrupted 3-0 Ethibond sutures. The tails had been trimmed and placed laterally underneath the external oblique. Good positioning was felt to have been achieved. The external oblique was approximated with a running 3-0 Vicryl. Sub-cutaneous tissues proximal interrupted 4-0 Monocryl. The skin edges proximal and running septic or 4 Monocryl. Steri-Strips Telfa and OpSite dressings applied. Sponge and instrument and needle counts were reported to the surgeon to be correct. Blood loss was minimal. Specimens include cord lipoma. Drains none. Blood loss minimal. He was taken to the recovery area in satisfactory condition without apparent complication Maxim Cheung M.D., F.A.C.S. Type of Anesthesia:: Local MAC Anesthesiologist: Jorge Luis Malave
[2018-08-11 08:41] VITALS: BP 107/81; BP 128/85; PULSE 55; RESP 16; TEMP 36.2; O2SAT 94
[2018-08-11 08:45] VITALS: BP 116/79; BP 128/85; PULSE 62; RESP 16; O2SAT 93
[2018-08-11 08:50] VITALS: BP 114/66; BP 128/85; PULSE 54; RESP 16; O2SAT 95
[2018-08-11 08:55] VITALS: BP 113/59; BP 128/85; PULSE 51; RESP 16; TEMP 36.1; O2SAT 95
[2018-08-11 10:16] VITALS: BP 128/85; BP 155/87; PULSE 62; RESP 16; TEMP 36.3; O2SAT 100
== END 2018-08-11 10:19 | disposition home or self-care (01) ==
LOC: SDC 05:26 → AC 05:26
PROVIDERS: Family Provider Family Medicine; PCP Family Medicine; Referring Provider Surgery; Visit Provider Surgery
PROC: (CPT 49505; principal; 2018-08-11 07:00)
DX: K40.90 Unilateral inguinal hernia, without obstruction or gangrene, not specified as recurrent (principal); D17.6 Benign lipomatous neoplasm of spermatic cord; E11.9 Type 2 diabetes mellitus without complications; I10 Essential (primary) hypertension; E78.00 Pure hypercholesterolemia, unspecified; Z79.899 Other long term (current) drug therapy; Z85.46 Personal history of malignant neoplasm of prostate; Z96.653 Presence of artificial knee joint, bilateral
CPT/HCPCS: 49505; 82962; 88304; 93005; J7120; C1781

== ENCOUNTER 2020-09-26 09:03 | Outpatient (RCR) | payer MEDICARE, OTHER, SELFPAY | END 2020-09-26 23:59 | LOC: IMMUN 09:03 | PROVIDERS: PCP Family Medicine; Visit Provider Family Medicine | DX: Z23 Encounter for immunization (principal) | CPT/HCPCS: 0011A; 0012A ==

== ENCOUNTER 2022-09-04 06:11 | Day surgery (SDC) | payer MEDICARE, OTHER, SELFPAY ==
[2022-09-04] VITALS (7 sets, daily range): BP systolic 119–131; BP diastolic 77–85; PULSE 57–73; RESP 14–16; TEMP 36.2–36.6; O2SAT 94–97; BMI 28.5
--- NOTE | 2022-09-04 | COLBX_PTH ---
PATIENT: RHONDA MEJIA LOC: [facility] U#:[id number] AGE/SX: 77/M ROOM: RE09/04/[address]: Dr. Maxim Cheung MD : 1945 BED: DIS: 09/04/2022 SPEC #: [id number] RECD: 09/04/22 12:33 STATUS: GOVIND REKirsty #: [id number] DOTTY: 09/04/22 00:[address]: Maxim Cheung DEPT: SURGICAL PATHOLOGY RECD BY: Fazal Galan ENTERED: 09/04/22 12:33 SP TYPE: COLON BX OTHR DR: Dr. Delmer Min MD Tissues: Rectum, NOS Procedures: Surgery Specimen Level IV HEADER OPERATION: Colonoscopy (MAC) with biopsy PRE-OP DIAGNOSIS: History of colonic polyps TISSUE SUBMITTED: Rectum polyp biopsy MICROSCOPIC DIAGNOSIS Rectum polyp, biopsy: Tubular adenoma. 09/05/2022 MICROSCOPIC DESCRIPTION Slides are reviewed. GROSS DESCRIPTION Received is one container labeled with the patient name and designated rectum polyp. The specimen consists of twos irregular fragments of light macias soft tissue that in aggregate measure 0.6 x 0.3 x 0.1 cm. The specimen is totally submitted in one cassette. /AM:cc 09/05/2022 TC:1 CPT: 37263
--- NOTE | 2022-09-04 06:14 | PCM.HP.BLA ---
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 Is patient in pain?: No Allergies No Known Allergies Allergy (Verified 08/14/22 15:03) Medications lisinopril 10 mg tablet 10 mg PO QDAY 07/04/17 [History Confirmed 08/14/22] pravastatin 20 mg tablet 20 mg PO QHS 07/04/17 [History Confirmed 08/14/22] metformin 500 mg tablet 1,000 mg PO BID 08/04/18 [History Confirmed 08/14/22] PFSH Medical History?(Updated 08/14/22 @ 15:00 by Margaret Hassan) Benign neoplasm of colon DM (diabetes mellitus) History of prostate cancer Personal history of colonic polyps Right inguinal hernia Surgical History?(Updated 08/14/22 @ 15:00 by Margaret Hassan) History of colonoscopy History of local excision of skin lesion Hx of inguinal hernia repair S/P arthroscopic surgery of left knee S/P colonoscopy S/P foot surgery S/P surgical removal of pilonidal cyst Status post arthroscopic surgery of right knee Status post bilateral knee replacements Status post finger joint fusion Family History? Mother DiabetesBrother Thyroid cancer Prostate cancerSister Colon cancer Social History? Smoking Status:? Never smoker second hand exposure:? No alcohol intake:? never substance use type:? does not use caffeine:? No what type of physical activity do you participate in:? none seatbelt use:? always HPI HPI HPI: 77-year-old gentleman returns to discuss colonoscopy.? I have assisted him most recently on August 11, 2018 when I did a Christopher right inguinal herniorrhaphy.? Previously August 09, 2017 I performed a colonoscopy for him as he has a personal history of colon polyps.? There is a somewhat tortuous sigmoid colon with diverticular disease.? No recurrent polyps at that time.? Patient grace currently is enjoying good health.? Denies any bright red blood per rectum or melena.? He has been losing some weight.? In part intentional.? He denies chest pain or shortness of breath. ROS General General: No weight change, appetite, fatigue, colon cancer, breast cancer or weakness HEENT HEENT: No difficulty swallowing, eye injury, eye surgery, swollen glands or hoarseness Endo Endocrine: Yes diabetes mellitus; No thyroid disease, thyroid cancer, Hair loss, heat intolerance or cold intolerance Skin Skin: No rash or changing moles Breast Breast: No left breast lump, right breast lump, nipple discharge, breast pain, abnormal mammogram, abnormal US or breast enlargement Musc Musculoskeletal: No back problems, arthritis, rheumatoid arthritis, gout or joint pain Cardio Cardiovascular: No murmur, pacemaker, heart disease, atrial fibrillation, high blood pressure, heart attack, heart stent, palpitations, shortness of breat with exertion or chest pain Psych Psychiatric: No depression, anxiety or hearing voices Resp Respiratory: No shortness of breath, No sleep apnea, No cough, No COPD, No asthma, No emphysema and No wheezing Gastro Gastrointestinal: No abdominal pain, No nausea or vomiting, No diarrhea, No constipation, No blood in stool, No acid reflux, No hemorrhoids, No ulcers, No gallbladder problem and No black,tarry stools [place] Hematologic: No blood thinners, No blood disorders, No bleeding, No anemia and No blood clots Neuro Neurologic: No system reviewed and no additional complaints, except as documented, No as per HPI, No abnormal gait, No abnormal hearing, No abnormal movements, No abnormal speech, No behavioral changes, No burning sensations, No confusion, No convulsions, No disequilibrium, No dizziness, No localized weakness, No frequent falls, No headache(s), No lack of coordination, No loss of vision, No memory loss, No numbness, No other visual disturbances, No radicular pain, No restless legs, No sensory deficit, No syncope, No tingling, No tremor(s), No weakness and No other Exam Const General: cooperative, comfortable and no acute distress [facility] Head: normal to inspection Eyes General: appearance normal, both eyes and all related structures Neck Neck: normal visual inspection Chest Chest palpation & inspection: normal inspection of the chest Resp Effort & Inspection: normal respiratory effort Auscultation: clear to auscultation bilaterally Cardio Rate: regular rate Rhythm: regular rhythm GI Palpation: soft and no hepatosplenomegaly Skin General: no rashes or lesions noted Neuro General: patient alert, patient awake and patient oriented x3 Extrem General: no calf tenderness Psych Appearance: grossly normal Assessment and Plan Assessment and Plan (1) Personal history of colonic polyps: ?Status:?Acute ?Plan: I do recommend the patient a further surveillance colonoscopy with possible biopsy or polypectomy as indicated.? He is aware of the technique, benefit, risk of alternatives.? He has had an opportunity to ask and have questions answered.? If this particular procedure is clean and polyps based upon age she likely will not require an additional colonoscopy.? We will schedule and proceed at his discretion.? I appreciate the ongoing opportunity of assisting with the surgical care. Copy: Dr. Singh Cheung M.D., F.A.C.S I have examined the patient and the H&P has been reviewed. There are no clinical changes since date of exam. Maxim Cheung M.D., F.A.C.S.
[2022-09-04] MEDS: Lactated Ringers 1,000 ML 15 ML IV (07:00)
--- NOTE | 2022-09-04 07:56 | OP.COLON_ITS ---
Patient Name: Bryson Langford Procedure Date: 09/04/2022 7:27 AM Date of : 1945 Age: 77 Procedure: Colonoscopy Indications: High risk colon cancer surveillance: Personal history of colonic polyps Providers: Maxim Cheung MD Referring MD: Maxim Cheung MD Medicines: See the Anesthesia note for documentation of the administered medications Patient Profile: Last Colonoscopy: July 2017. Complications: No immediate complications. Procedure: Pre-Anesthesia Assessment: - Prior to the procedure, a History and Physical was performed, and patient medications and allergies were reviewed. The patient's tolerance of previous anesthesia was also reviewed. The risks and benefits of the procedure and the sedation options and risks were discussed with the patient. All questions were answered, and informed consent was obtained. Prior Anticoagulants: The patient has taken no previous anticoagulant or antiplatelet agents. ASA Grade Assessment: II - A patient with mild systemic disease. After reviewing the risks and benefits, the patient was deemed in satisfactory condition to undergo the procedure. After I obtained informed consent, the scope was passed under direct vision. Throughout the procedure, the patient's blood pressure, pulse, and oxygen saturations were monitored continuously. The Colonoscope was introduced through the anus and advanced to the cecum, identified by appendiceal orifice and ileocecal valve. The colonoscopy was performed without difficulty. The patient tolerated the procedure well. The quality of the bowel preparation was good. The ileocecal valve was photographed. Scope In: 7:34:51 AM Scope Withdrawal Time 0 hours 11 minutes 35 seconds Scope Out: 7:51:15 AM Total Procedure Duration Time 0 hours 16 minutes 24 seconds Findings: Hemorrhoids were found on perianal exam. A 4 mm polyp was found in the rectum. The polyp was sessile. The polyp was removed with a cold biopsy forceps. Resection and retrieval were complete. The exam was otherwise without abnormality. Impression: - Hemorrhoids found on perianal exam. - One 4 mm polyp in the rectum, removed with a cold biopsy forceps. Resected and retrieved. - The examination was otherwise normal. Recommendation: - Discharge patient to home. - Resume previous diet. - Continue present medications. - Repeat colonoscopy in 5 years for surveillance. - Telephone my office for pathology results in 1 week. Procedure Code(s): --- Professional --- 17950, Colonoscopy, flexible; with biopsy, single or multiple Diagnosis Code(s): --- Professional --- Z86.010, Personal history of colonic polyps K64.9, Unspecified hemorrhoids K62.1, Rectal polyp CPT copyright 2017 [employer]. All rights reserved. The codes documented in this report are preliminary and upon senior sales consultant review may be revised to meet current compliance requirements. Maxim Cheung MD 09/04/2022 7:55:39 AM This report has been signed electronically. Number of Addenda: 0 Note Initiated On: 09/04/2022 7:27 AM
--- NOTE | 2022-09-04 07:56 | OP.CCLET_ITS ---
09/04/2022 Delmer Min Re : Colonoscopy procedure for Bryson Pollack Pako This procedure was performed on Sunday, September 04, 2022. My impressions and recommendations are as follows: Impressions : - Hemorrhoids found on perianal exam. - One 4 mm polyp in the rectum, removed with a cold biopsy forceps. Resected and retrieved. - The examination was otherwise normal. Recommendations : - Discharge patient to home. - Resume previous diet. - Continue present medications. - Repeat colonoscopy in 5 years for surveillance. - Telephone my office for pathology results in 1 week. My findings are described in the full procedure note, which is enclosed. If I can be of further assistance, please feel free to contact me at Doctor phone number(s): Work: . Sincerely, Maxim Cheung MD 09/04/2022 7:55:39 AM This report has been signed electronically.
== END 2022-09-04 08:36 | disposition home or self-care (01) ==
LOC: EN 06:11 → AC 06:12
PROVIDERS: PCP Family Medicine; Referring Provider Family Medicine; Visit Provider Surgery
PROC: 0DJD8ZZ Inspection of Lower Intestinal Tract, Via Natural or Artificial Opening Endoscopic (ICD-10-PCS; CPT 45378; principal; 2022-09-04 07:25)
DX: Z12.11 Encounter for screening for malignant neoplasm of colon (principal); E11.9 Type 2 diabetes mellitus without complications; K64.9 Unspecified hemorrhoids; D12.8 Benign neoplasm of rectum; Z86.010 Personal history of colon polyps; Z87.19 Personal history of other diseases of the digestive system; Z79.84 Long term (current) use of oral hypoglycemic drugs
CPT/HCPCS: 45380; 88305; J7120; J2405